=== PATIENT | female | born 1985 | race American Indian/Alaskan Native ===

== ENCOUNTER 2017-11-10 00:24 | Emergency (ER) | payer BC ==
[2017-11-10 01:32] LABS: Basophils % (Auto) 0.1 % (0.0-1.8); Eosinophils % (Auto) 0.3 % (0.0-4.3); Hematocrit 34.8 % (30.3-42.9); Hemoglobin 11.8 gm/dl (10.1-14.3); Lymphocytes # (Auto) 2.3 K/mm3 (1.2-5.4); Lymphocytes % (Auto) 23.6 % (13.4-35.0); Mean Corpuscular HGB Conc 34 % (30-34); Mean Corpuscular Hemoglobin 30 pg (28-32); Mean Corpuscular Volume 88 fl (79-97); Monocytes % (Auto) 10.4 % (0.0-7.3); Platelet Count 251 K/mm3 (140-440); Red Blood Count 3.95 M/mm3 (3.65-5.03); Red Cell Distribution Width 13.3 % (13.2-15.2)
[2017-11-10 01:33] LABS: Bilirubin,Urine NEG (Negative); Blood,Urine NEG (Negative); Color,Urine Yellow (Yellow); Mucus,Urine FEW /HPF; Protein,Urine <15 mg/dL mg/dL (Negative)
[2017-11-10 01:59] LABS: Alanine Aminotransferase 9 units/L (7-56); Albumin 3.9 g/dL (3.9-5); BUN/Creatinine Ratio 8; Blood Urea Nitrogen 4 mg/dL (7-17); Calcium 9.1 mg/dL (8.4-10.2); Hemolysis Index 0
--- NOTE | 2017-11-10 09:28 | Emergency Department Report ---
HPI - General Chief Complaint: Abdominal Pain Time Seen by Provider: 11/10/17 09:07 - [facility] HPI: Room 7 The patient is a 32-year-old female presenting with chief complaint of abdominal pain and vaginal bleeding. Patient states she is "2 months" and for the past 5 days she's had a constant sharp suprapubic pain. The patient states while waiting in the waiting room she developed vaginal bleeding. Patient admits to nausea but denies vomiting. Patient denies fever Location: Pelvis Duration: [See above] Quality: Sharp Severity: 12/26 Modifying factors: [see above] Context: [see above] Mode of transportation: Unknown ED Past Medical Hx - Past Medical History Previous Medical History?: Yes Additional medical history: fibroids - Surgical History Past Surgical History?: No - Family History Family history: no significant - Social History Smoking Status: Former Smoker (none 2 weeks) Substance Use Type: None (denies illicit drug use), Alcohol (occasional) - Medications Home Medications: Home Medications Medication Instructions Recorded Confirmed Last Taken Type Acetaminophen with Codeine 1 - 2 each PO Q6H PRN #14 tablet 11/10/17 Unknown Rx [Tylenol with Codeine #3 Tablet] ED Review of Systems ROS: Stated complaint: ABDOMINAL PAIN Other details as noted in HPI Constitutional: denies: fever Eyes: denies: eye pain ENT: denies: throat pain Cardiovascular: denies: chest pain Gastrointestinal: abdominal pain, nausea. denies: vomiting Genitourinary: abnormal menses. denies: dysuria Musculoskeletal: denies: back pain Neurological: denies: headache Physical Exam - Physical Exam Vital Signs: Vital Signs 11/10/17 00:27 Temperature 98.3 F Pulse Rate 87 Respiratory 18 Rate Blood Pressure 112/52 O2 Sat by Pulse 99 Oximetry Physical Exam: GENERAL: The patient is well-developed well-nourished female sitting on stretcher not appearing to be in acute distress. [] HEENT: Normocephalic. Atraumatic. Extraocular motions are intact. Patient has moist mucous membranes. NECK: Supple. Trachea midline CHEST/LUNGS: Clear to auscultation. There is no respiratory distress noted. HEART/CARDIOVASCULAR: Regular. There is no tachycardia. There is no gallop rub or murmur. ABDOMEN: Abdomen is soft, with mild discomfort to palpation in the suprapubic and epigastric regions. There is no rebound or guarding. Patient has normal bowel sounds. There is no abdominal distention. SKIN: There is no rash. There is no edema. There is no diaphoresis. NEURO: The patient is awake, alert, and oriented. The patient is cooperative. The patient has normal speech MUSCULOSKELETAL: There is no evidence of acute injury. ED Course Vital Signs 11/10/17 00:27 Temperature 98.3 F Pulse Rate 87 Respiratory 18 Rate Blood Pressure 112/52 O2 Sat by Pulse 99 Oximetry ED Medical Decision Making - Lab Data Result diagrams: 11/10/17 01:24 11/10/17 01:24 Laboratory Tests 11/10/17 11/10/17 11/10/17 01:08 01:24 01:24 WBC 9.7 RBC 3.95 Hgb 11.8 Hct 34.8 MCV 88 MCH 30 MCHC 34 RDW 13.3 Plt Count 251 Lymph % (Auto) 23.6 Ashley % (Auto) 10.4 H Eos % (Auto) 0.3 Baso % (Auto) 0.1 Lymph # 2.3 Ashley # 1.0 H Eos # 0.0 Baso # 0.0 Seg Neutrophils % 65.6 Seg Neutrophils # 6.4 Sodium 135 L Potassium 3.6 Chloride 99.9 Carbon Dioxide 22 Anion Gap 17 BUN 4 L Creatinine 0.5 L Estimated GFR > 60 BUN/Creatinine Ratio 8 Glucose 92 Calcium 9.1 Total Bilirubin 0.50 AST 13 ALT 9 Alkaline Phosphatase 74 Total Protein 7.3 Albumin 3.9 Albumin/Globulin Ratio 1.1 HCG, Quant Urine Color Yellow Urine Turbidity Clear Urine pH 6.0 Ur Specific [place] 1.024 Urine Protein <15 mg/dl Urine Glucose (UA) Neg Urine Ketones Neg Urine Blood Neg Urine Nitrite Neg Urine Bilirubin Neg Urine Urobilinogen 2.0 Ur Leukocyte Esterase Neg Urine WBC (Auto) 1.0 Urine RBC (Auto) 2.0 U Epithel Cells (Auto) 2.0 Urine Mucus Few 11/10/17 01:24 WBC RBC Hgb Hct MCV MCH MCHC RDW Plt Count Lymph % (Auto) Ashley % (Auto) Eos % (Auto) Baso % (Auto) Lymph # Ashley # Eos # Baso # Seg Neutrophils % Seg Neutrophils # Sodium Potassium Chloride Carbon Dioxide Anion Gap BUN Creatinine Estimated GFR BUN/Creatinine Ratio Glucose Calcium Total Bilirubin AST ALT Alkaline Phosphatase Total Protein Albumin Albumin/Globulin Ratio HCG, Quant 31597 H Urine Color Urine Turbidity Urine pH Ur Specific [place] Urine Protein Urine Glucose (UA) Urine Ketones Urine Blood Urine Nitrite Urine Bilirubin Urine Urobilinogen Ur Leukocyte Esterase Urine WBC (Auto) Urine RBC (Auto) U Epithel Cells (Auto) Urine Mucus - Radiology Data Radiology results: report reviewed (pelvic ultrasound), image reviewed (pelvic ultrasound) [facility] [address] [place] [address] Ultrasound Report Signed Patient: FOZIA HEAD MR#: [id number] : 1985 Acct:[id number] Age/Sex: 32 / F ADM Date: 11/10/17 Loc: ED Attending Dr: Ordering Physician: SSUANNE RAMAN MD Date of Service: 11/10/17 Procedure(s): US OB <= 14 weeks fetus Accession Number(s): [id number] cc: SUSANNE RAMAN MD ULTRASOUND PELVIC COMPLETE HISTORY: Lower abdominal pain, vaginal bleeding. COMPARISON: None. TECHNIQUE: Transabdominal ultrasound with color doppler interrogation. The patient refused transvaginal imaging. FINDINGS: Uterus: 16 x 9 x 11 cm. At least 2 uterine fibroids are identified in the lower uterus measuring 4.0 cm and 5.0 cm. The cervix is obscured. Endometrium: An intrauterine gestational sac containing is pole is identified. Heart rate measures 161 beats per minute. [place]-rump length correlates with a 12 week, 4 day . Right ovary: Not visualized. Left ovary: Not visualized. No pelvic fluid or mass is identified. Normal color doppler interrogation. IMPRESSION: Viable, single intrauterine as described. No acute abnormality is detected. Uterine fibroids. Transcribed By: TTR Dictated By: RAEGAN NICHOLS JR, MD Electronically Authenticated By: RAEGAN NICHOLS JR, MD Signed Date/Time: 11/10/17 111 DD/ 1115 TD/TT: 11/10/17 111 - Medical Decision Making I explained to the patient that all narcotic pain medication is class C and that she is having a threatened miscarriage. I explained that there is not enough data to state that narcotic pain medication is definitively safe for the fetus in . Patient and significant other in room verbalizes understanding. Patient states regular Tylenol and Motrin have not helped her pain and she wishes to receive narcotic pain medication. I explained to the patient that she should be on bed rest and pelvic rest until cleared by her [employer] WEIGHER - Differential Diagnosis threatened , missed , spontaneous , inevitable abor Critical care attestation.: If time is entered above; I have spent that time in minutes in the direct care of this critically ill patient, excluding procedure time. ED Disposition Clinical Impression: Threatened Disposition: TO HOME OR SELFCARE Is pt being admited?: No Does the pt Need Aspirin: No Condition: Stable Instructions: Abdominal Pain (ED), Threatened Miscarriage (ED) Additional Instructions: You should be on bedrest and pelvic rest until you are cleared by your [employer] WEIGHER. Return to the emergency department immediately should you develop worsening symptoms, fever, inability to tolerate food or liquid or any other concerns. Prescriptions: Acetaminophen with Codeine [Tylenol with Codeine #3 Tablet] 1 - 2 each PO Q6H PRN #14 tablet PRN Reason: Pain , Severe (7-10) Referrals: PRIMARY CARE, [Primary Care Provider] - 3-5 Days your, [employer] WEIGHER [Other] - [facility] Time of Disposition: 12:01
[2017-11-10] MEDS ORDERED: TYLENOL PO ONE (11:16)
--- NOTE | 2017-11-10 11:28 | Ultrasound Report ---
ULTRASOUND PELVIC COMPLETE HISTORY: Lower abdominal pain, vaginal bleeding. COMPARISON: None. TECHNIQUE: Transabdominal ultrasound with color doppler interrogation. The patient refused transvaginal imaging. FINDINGS: Uterus: 16 x 9 x 11 cm. At least 2 uterine fibroids are identified in the lower uterus measuring 4.0 cm and 5.0 cm. The cervix is obscured. Endometrium: An intrauterine gestational sac containing is pole is identified. Heart rate measures 161 beats per minute. [place]-rump length correlates with a 12 week, 4 day . Right ovary: Not visualized. Left ovary: Not visualized. No pelvic fluid or mass is identified. Normal color doppler interrogation. IMPRESSION: Viable, single intrauterine as described. No acute abnormality is detected. Uterine fibroids.
[2017-11-10 12:13] VITALS: BP 107/67
== END 2017-11-10 12:14 | disposition home or self-care (01) ==
LOC: ED 00:24
DX: O20.0 Threatened abortion (principal); Z87.891 Personal history of nicotine dependence; Z3A.14 14 weeks gestation of pregnancy
CPT/HCPCS: 36415; 76801; 80053; 81001; 84702; 85025